=== PATIENT | female | born 1955 | race Caucasian/White ===

== ENCOUNTER 2017-10-14 21:06 | Emergency (ER) | payer MEDICAID ==
[~2017-10-14] VITALS: Ht 157.5 cm; Wt 62.6 kg
[2017-10-14 21:15] VITALS: BP 145/77
--- NOTE | 2017-10-14 21:15 | NUR ---
TO BED # 5 AMBULATORY, REPORT GIVEN TO CURT KOCH.
--- NOTE | 2017-10-14 21:24 | NUR ---
PT PRESENTED ER WITH C/O BURNING/PAIN IN THE MOUTH, LIPS X 3 WEEKS. PT STATED SHE HAS DRY MOUTH AND IT ORELLANA TO SWALLOW. NO OBVIOUSS SORES OR REDDNESS TO MOUTH UPON ASSESSMENT. PT HAS AN ALLERGY TO ASPIRIN. MEDICAL HX IS DM, HTN, GASTRITIS, HYPERLIPIDEMIA AND HYPERTHYROID. FAMILY AT BEDSIDE; SKIN IS PINK/WARM/DRY; AAOX4 ; PT DENIES ANY FEVER, SOB, OR COUGH AT THIS TIME; PATIENT STATES PAIN OF 6/10 AT THIS TIME; VSS; PATIENT POSITIONED FOR COMFORT; HOB ELEVATED; BEDRAILS UP X2; BED DOWN. ER MD MADE AWARE OF PT STATUS.
--- NOTE | 2017-10-14 21:24 | NUR ---
Fadumo russo in [facility] - 10/14/17 at 2130 by [facility] PT TO ER BED 5
[2017-10-14] MEDS ORDERED: GABAPENTIN 300 MG CAP PO ONE (21:40)
--- NOTE | 2017-10-14 21:48 | NUR ---
WAITING FOR MEDICATION FOR PT. 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 NOTIFED
[2017-10-14 22:06] VITALS: BP 145/77
--- NOTE | 2017-10-14 22:06 | NUR ---
Patient discharged with v/s stable. Written and verbal after care instructions given and explained. Patient alert, oriented and verbalized understanding of instructions. Ambulatory with steady gait. All questions addressed prior to discharge. ID band removed. Patient advised to follow up with PMD. Rx of GABAPENTIN given. Patient educated on indication of medication including possible reaction and side effects. Opportunity to ask questions provided and answered.
== END 2017-10-14 22:06 | disposition home or self-care (01) ==
LOC: MED 21:06
DX: K12.1 Other forms of stomatitis (principal); E11.9 Type 2 diabetes mellitus without complications; I10 Essential (primary) hypertension; E05.90 Thyrotoxicosis, unspecified without thyrotoxic crisis or storm; E78.5 Hyperlipidemia, unspecified; Z88.6 Allergy status to analgesic agent
CPT/HCPCS: 82948; 99283

== ENCOUNTER 2017-11-15 00:20 | Emergency (ER) | payer MEDICAID ==
[~2017-11-15] VITALS: Ht 157.5 cm; Wt 63.5 kg
[2017-11-15 00:39] VITALS: BP 131/77
--- NOTE | 2017-11-15 00:43 | NUR ---
PT AMBULATED TO LOBBY WITH VSS. ACCOMPANIED BY DAUGHTER.
--- NOTE | 2017-11-15 02:47 | NUR ---
PT TO ER BED 11
--- NOTE | 2017-11-15 02:50 | NUR ---
Note undone in EDM - 11/15/17 at 0452 by [email or web address] 62/F CAME IN ED, C/O 08/14 R FOOT PAIN, X4 DAYS. PT HAS AN OPEN WOUND ON R MEDIAL SIDE OF FOOT AND SMALL PINPOINT DRY SCAB/ABRASION ON R DORSAL ASPECT OF FOOT. PT REPORTS TENDERNESS TO TOUCH. PT DENIES FEVER, N/V. BLOOD SUGAR 186 AT THIS TIME HX HTN, HLD, DM, GASTRITIS
--- NOTE | 2017-11-15 02:50 | NUR ---
62/F CAME IN ED, C/O 6/10 L FOOT PAIN, X4 DAYS. PT HAS AN OPEN WOUND ON L MEDIAL SIDE OF FOOT AND SMALL PINPOINT DRY SCAB/ABRASION ON L DORSAL ASPECT OF FOOT. PT REPORTS TENDERNESS TO TOUCH. PT DENIES FEVER, N/V. BLOOD SUGAR 186 AT THIS TIME HX HTN, HLD, DM, GASTRITIS
[2017-11-15] MEDS ORDERED: NEOMYCIN/POLYMYXIN/BACITRACIN 0.9 GM/1 PKT TP ONE (02:55)
[2017-11-15] MEDS ORDERED: BACITRACIN OINT 500 UNITS/GM PKT TP ONE (02:55)
--- NOTE | 2017-11-15 03:25 | NUR ---
WOUND CARE PERFORMED BY EMT
[2017-11-15 06:09] VITALS: BP 130/70
--- NOTE | 2017-11-15 06:09 | NUR ---
Patient discharged with v/s stable. Written and verbal after care instructions given and explained. Patient alert, oriented and verbalized understanding of instructions. Ambulatory with steady gait. All questions addressed prior to discharge. ID band removed. Patient advised to follow up with PMD. Rx of MUCIPROCIN, CLEOCIN given. Patient educated on indication of medication including possible reaction and side effects. Opportunity to ask questions provided and answered.
== END 2017-11-15 06:09 | disposition home or self-care (01) ==
LOC: MED 00:20
DX: S91.302A Unspecified open wound, left foot, initial encounter (principal); E11.9 Type 2 diabetes mellitus without complications; I10 Essential (primary) hypertension; E05.90 Thyrotoxicosis, unspecified without thyrotoxic crisis or storm; E78.5 Hyperlipidemia, unspecified; Z88.6 Allergy status to analgesic agent; W26.8XXA Contact with other sharp object(s), not elsewhere classified, initial encounter; Y93.89 Activity, other specified; Y92.89 Other specified places as the place of occurrence of the external cause; Y99.8 Other external cause status
CPT/HCPCS: 73630; 82948; 87070; 87186; 99285; Q0092

== ENCOUNTER 2018-05-11 21:38 | Emergency (ER) | payer MEDICAID ==
[~2018-05-11] VITALS: Ht 157.5 cm; Wt 63.5 kg
[2018-05-11 21:55] VITALS: BP 181/84
--- NOTE | 2018-05-11 22:33 | NUR ---
PT AMBULATED TO ER BED 01
--- NOTE | 2018-05-11 22:45 | NUR ---
63/F MALTESE SPEAKING. A0 X4. FOLLOWS COMMANDS. CC: RLE CELLULITIS X 5 DAYS. CUT FOOT ON HAMPER. RX AMOXCILLIN GIVEN WITH ABX OINTMENT. HEALING UNRESOLVED. HX HTN, THYROID DISEASE, HLD. BED IN LOWEST POSITION. WILL CONTINUE TO MONITOR.
[2018-05-11] MEDS ORDERED: SULFAMETH/TRIMETH DS 800/160MG 1 TAB PO ONE (23:20)
[2018-05-11 23:38] VITALS: BP 181/84
== END 2018-05-11 23:35 | disposition home or self-care (01) ==
LOC: MED 21:38
DX: L03.115 Cellulitis of right lower limb (principal); I10 Essential (primary) hypertension; E11.9 Type 2 diabetes mellitus without complications; E05.90 Thyrotoxicosis, unspecified without thyrotoxic crisis or storm
CPT/HCPCS: 99283

== ENCOUNTER 2021-01-20 14:10 | Emergency (ER) | payer MEDICAID ==
[~2021-01-20] VITALS: Ht 153.7 cm; Wt 60.5 kg
[2021-01-20 14:32] VITALS: BP 171/87
--- NOTE | 2021-01-20 14:45 | NUR ---
DEAN HAIDER AT BEDSIDE EVALUATING PT
[2021-01-20] MEDS ORDERED: HYDROcodone/APAP 5/325 MG 1 TAB TAB PO ONE (14:55)
--- NOTE | 2021-01-20 15:15 | NUR ---
65 Y/O FEMALE C/O WOUND TO R LATERAL ASPECT OF ANKLE X4 DAYS. PT REPORTS SHE WAS WALKING HER DOG WHEN THE LEASH WRAPPED AROUND HER LEG AND CAUSED THE WOUND. WOUND IS NOW CLOSED, BLACK IN COLOR WITH LIGHT GREEN EXCUDATE PRESENT. +3 PITTING EDEMA NOTED TO R ANKLE WITH REDDNESS. PT REPORTS CHILLS BUT DENIES FEVER. DENIES NUMBNESS TINGLING. FULL ROM, PEDAL PULSES +2 WITH CAP REFILL <3 SECONDS. PT A/O X4 WITH EVEN AND UNLABORED RESPIRATIONS PMH:DM, HTN, EMBOLISM, HDL, THYROID ALLERGIES:ASPIRIN
--- NOTE | 2021-01-20 15:24 | NUR ---
XRAY AT BEDSIDE
[2021-01-20 15:35] LABS: BASOPHILS % (AUTO) 0.5 % (0.0-2.0); EOSINOPHILS # (AUTO) 0.1 K/uL (0-0.4); EOSINOPHILS % (AUTO) 2.4 % (0.0-4.0); HEMATOCRIT 35.2 % (36-48); HEMOGLOBIN 12.3 g/dL (12.0-16.0); LYMPHOCYTES # (AUTO) 1.3 K/uL (2.5-16.5); LYMPHOCYTES % (AUTO) 27.6 % (20.5-51.1); MEAN CORPUSCULAR HEMOGLOBIN 36 pg (27-31); MEAN CORPUSCULAR HGB CONC 35 g/dL (33-37); MEAN CORPUSCULAR VOLUME 102.5 fL (80-94); MONOCYTES # (AUTO) 0.3 K/uL (0.8-1.0); MONOCYTES % (AUTO) 7.7 % (1.7-9.3); NEUTROPHILS # (AUTO) 2.8 K/uL (1.8-7.7); NEUTROPHILS % (AUTO) 61.8 % (42.2-75.2); PLATELET COUNT (AUTO) 162 K/uL (140-450); RED BLOOD CELL COUNT(AUTO) 3.44 MIL/uL (4.20-5.40); WHITE BLOOD COUNT (AUTO) 4.5 K/uL (4.8-10.8)
[2021-01-20] MEDS ORDERED: cefTRIAXone 1,000 MG in LIDOCAINE MPF 1% 2.1 ML IM ONE (15:50)
[2021-01-20 15:53] LABS: ALBUMIN 3.4 g/dL (3.4-5.0); ANION GAP 9.4 (8-16); CARBON DIOXIDE 30.8 mmol/L (21-32); CREATININE 0.7 mg/dL (0.6-1.3); POTASSIUM 4.2 mmol/L (3.5-5.1); TOTAL BILIRUBIN 0.6 mg/dL (0.0-1.0)
[2021-01-20] MEDS ORDERED: CEPH-588 PO (15:56)
[2021-01-20] MEDS ORDERED: BACI1PAC6 TP (15:56)
[2021-01-20] MEDS ORDERED: SULF-59 PO (15:56)
[2021-01-20] MEDS ORDERED: ACET-8386 PO (15:57)
[2021-01-20] MEDS ORDERED: cefTRIAXone 1,000 MG VIAL ONE (16:00)
[2021-01-20] MEDS ORDERED: LIDOCAINE MPF 1% 5 ML ONE (16:04)
--- NOTE | 2021-01-20 16:42 | NUR ---
Patient discharged with v/s stable. Written and verbal after care instructions given and explained. Patient alert, oriented and verbalized understanding of instructions. Ambulatory with steady gait. All questions addressed prior to discharge. ID band removed. Patient advised to follow up with PMD. Rx of HYDROCODONE/ACETAMIOPHEN, BACETRACIN ZINC, CEPHALEXIN, SULFAMETHOXAZOLE/TRIMETHOPRIM given. Opportunity to ask questions provided and answered.
--- NOTE | 2021-01-20 16:51 | NUR ---
The patient's care was reviewed and supervised by Lisbet Ortiz RN.
== END 2021-01-20 16:42 | disposition home or self-care (01) ==
LOC: MED 14:10
DX: L03.115 Cellulitis of right lower limb (principal); E11.9 Type 2 diabetes mellitus without complications; I10 Essential (primary) hypertension; E03.9 Hypothyroidism, unspecified; E78.5 Hyperlipidemia, unspecified; Z79.899 Other long term (current) drug therapy; Z88.6 Allergy status to analgesic agent
CPT/HCPCS: 36415; 73590; 80053; 83605; 85025; 86140; 87040; 90471; 90715; 96372; 99284; J0696; J2001; Q0092

== ENCOUNTER 2021-09-12 10:44 | Emergency (ER) | payer OTHER, MEDICAID ==
[~2021-09-12] VITALS: Ht 154.9 cm; Wt 61.2 kg
[~2021-09-12 10:44] MED LIST: ACET-8386 PO; BACI1PAC6 TP; CEPH-588 PO; SULF-59 PO
[2021-09-12 10:47] VITALS: BP 164/70
--- NOTE | 2021-09-12 10:55 | NUR ---
PT AMB TO BED 12.
--- NOTE | 2021-09-12 11:11 | NUR ---
66 Y/O FEMALE C/O RIGHT RIB PAIN, R ARM PAIN S/P FALL X 3 DAYS. BLOOD SUGAR 365 AT THIS TIME. DENIES N/V/D. DENIES FEVER/CHILLS. PMH: DM, HTN, HLD ALLERGIES: ASPIRIN
--- NOTE | 2021-09-12 11:24 | NUR ---
PT TAKEN TO XR VIA W/C.
[2021-09-12] MEDS ORDERED: MORPHINE SULFATE 4 MG/ML SYR IM ONE (11:35)
--- NOTE | 2021-09-12 12:11 | NUR ---
DR. CARBAJAL AT PT BEDSIDE FOR FURTHER EVALUATION.
[2021-09-12] MEDS ORDERED: ACET-8386 PO (12:48)
[2021-09-12] MEDS ORDERED: IBUP-2213 PO (12:48)
[2021-09-12 13:00] VITALS: BP 152/81
--- NOTE | 2021-09-12 13:02 | NUR ---
Patient discharged with v/s stable. Written and verbal after care instructions given FOR SHOULDER PAIN AND RIB CONTUSION and explained. Patient alert, oriented and verbalized understanding of instructions. Ambulatory with by caregiver. All questions addressed prior to discharge. ID band removed. Patient advised to follow up with PMD. Rx of NORCO AND IBUPROFEN given. Patient educated on indication of medication including possible reaction and side effects. Opportunity to ask questions provided and answered.
== END 2021-09-12 13:02 | disposition home or self-care (01) ==
LOC: MED 10:44
DX: S20.211A Contusion of right front wall of thorax, initial encounter (principal); M25.511 Pain in right shoulder; E03.9 Hypothyroidism, unspecified; E11.9 Type 2 diabetes mellitus without complications; I10 Essential (primary) hypertension; Z79.82 Long term (current) use of aspirin; Z79.4 Long term (current) use of insulin; Z79.899 Other long term (current) drug therapy; Z90.49 Acquired absence of other specified parts of digestive tract; W18.30XA Fall on same level, unspecified, initial encounter; Y93.89 Activity, other specified; Y92.89 Other specified places as the place of occurrence of the external cause; Y99.8 Other external cause status
CPT/HCPCS: 71101; 73030; 96372; 99284; J2270

== ENCOUNTER 2022-10-31 00:45 | Emergency (ER) | payer OTHER, MEDICAID ==
[~2022-10-31] VITALS: Ht 157.5 cm; Wt 56.7 kg
[~2022-10-31 00:45] MED LIST changes: -ACET-8386 PO; -BACI1PAC6 TP; -CEPH-588 PO; +MECO10005 PO; -SULF-59 PO
[2022-10-31 00:57] VITALS: BP 172/73; PULSE 60; RESP 16; TEMP 97.4; O2SAT 100
[2022-10-31 02:56] LABS: BASOPHILS % (AUTO) 0.8 % (0.0-2.0); EOSINOPHILS # (AUTO) 0.1 K/uL (0-0.4); EOSINOPHILS % (AUTO) 2.8 % (0.0-4.0); HEMATOCRIT 38.9 % (36-48); HEMOGLOBIN 13.5 g/dL (12.0-16.0); LYMPHOCYTES # (AUTO) 1.7 K/uL (2.5-16.5); LYMPHOCYTES % (AUTO) 39.7 % (20.5-51.1); MEAN CORPUSCULAR HEMOGLOBIN 30 pg (27-31); MEAN CORPUSCULAR HGB CONC 35 g/dL (33-37); MEAN CORPUSCULAR VOLUME 86.3 fL (80-94); MONOCYTES # (AUTO) 0.3 K/uL (0.8-1.0); MONOCYTES % (AUTO) 7.7 % (1.7-9.3); NEUTROPHILS # (AUTO) 2.1 K/uL (1.8-7.7); PLATELET COUNT (AUTO) 156 K/uL (140-450); RED BLOOD CELL COUNT(AUTO) 4.51 MIL/uL (4.20-5.40); WHITE BLOOD COUNT (AUTO) 4.3 K/uL (4.8-10.8)
[2022-10-31 03:01] LABS: ANION GAP 9.2 (8-16); CALCIUM 8.9 mg/dL (8.5-10.1); CARBON DIOXIDE 28.8 mmol/L (21-32)
[2022-10-31 03:27] LABS: APPEARANCE,URINE CLEAR (CLEAR); BILIRUBIN,URINE NEGATIVE (NEGATIVE); BLOOD, URINE TRACE-L (NEGATIVE); COLOR,URINE YELLOW (YELLOW); LEUKOCYTE ESTERASE ,URINE TRACE (NEGATIVE); NITRITE, URINE NEGATIVE (NEGATIVE); PROTEIN,URINE NEGATIVE (NEGATIVE); UGLUCOSE 3+ (NEGATIVE)
[2022-10-31] MEDS ORDERED: NACL 0.9% 1,000 ML IV ONE (03:35)
[2022-10-31] MEDS ORDERED: MECLIZINE 25 MG TAB PO ONE (03:35)
[2022-10-31 03:41] LABS: BACTERIA,URINE 3+ /HPF (None Seen); MUCUS,URINE 2+ /LPF (None Seen); RBC,URINE 0-5 /HPF (0-5); SQUAMOUS EPITHELIAL CELL,UR 4-10 (MOD) /LPF (0-3 (FEW)); TRICHOMONAS,URINE None Seen /HPF (None Seen); WBC,URINE 0-5 /HPF (0-5); YEAST,URINE None Seen /HPF (None Seen)
[2022-10-31] MEDS ORDERED: CEPH-588 PO (04:51)
[2022-10-31] MEDS ORDERED: MECL-303 PO (04:51)
[2022-10-31 05:12] VITALS: BP 160/56; PULSE 53; RESP 16; TEMP 97.4; O2SAT 100
== END 2022-10-31 05:12 | disposition home or self-care (01) ==
LOC: MED 00:45
DX: E11.65 Type 2 diabetes mellitus with hyperglycemia (principal); N39.0 Urinary tract infection, site not specified; R42 Dizziness and giddiness; J45.909 Unspecified asthma, uncomplicated; K21.9 Gastro-esophageal reflux disease without esophagitis; I10 Essential (primary) hypertension; Z86.39 Personal history of other endocrine, nutritional and metabolic disease; Z90.49 Acquired absence of other specified parts of digestive tract; Z79.899 Other long term (current) drug therapy; Z79.2 Long term (current) use of antibiotics; Z88.6 Allergy status to analgesic agent
CPT/HCPCS: 36415; 70450; 71045; 80048; 81001; 84484; 85025; 87086; 93005; 96360; 99285; J7030; J8597; Q0092